=== PATIENT | male | born 1980 ===

== ENCOUNTER 2022-05-03 13:50 | Emergency (ER) | payer BC, SELFPAY ==
[2022-05-03 15:07] LABS: Bilirubin 1+ (Negative); Blood, Urine 250 (Negative); Clarity Slightly Cloudy (Clear); Glucose, Urine (Dipstick) Normal (Negative); Ketone, Urine 15 mg/dL (Negative); Leukocyte 500 (Negative); Nitrite Positive (Negative); Protein, Urine (Dipstick) 100 mg/dl (Neg-Trace)
[2022-05-03 15:34] LABS: Squamous Epithelial 0-3 HPF (0-3); Transitional Epithelial 0-3 HPF (None Seen); WBC/HPF 21-50 HPF (0-3)
[2022-05-03 15:35] LABS: Bacteria/HPF 3+ HPF (None Seen); Mucous/LPF Rare LPF (<2+)
[2022-05-03] MEDS ORDERED: cefTRIAXone\\ROCEPHIN 1 GM VIAL ONE (16:16)
[2022-05-03] MEDS ORDERED: Lidocaine 1% (PF) 30 ML VIAL ONE (16:16)
[2022-05-04 19:28] LABS: Chlam.trachomatis by PCR,Urine Not Detected (NotDetected)
== END 2022-05-03 16:42 | disposition home or self-care (01) ==
LOC: CSHERS 13:50
DX: N12 Tubulo-interstitial nephritis, not specified as acute or chronic (principal); F17.210 Nicotine dependence, cigarettes, uncomplicated
CPT/HCPCS: 81003; 81015; 87491; 87591; 96372; 99284; J0696; J2001